=== PATIENT | male | born 2000 | race Caucasian/White ===

== ENCOUNTER 2021-03-12 00:30 | Day surgery (SDC) | payer BC, SELFPAY ==
[2021-03-03 15:24] VITALS: BMI 24.2
--- NOTE | 2021-03-03 15:33 | PC.NURSE ---
Report to the Outpatient Waiting Room, entrance under the green pavilion located off [facility], at time 1100 on date 03/12/21. OR Time: 1300. - You and your visitor will be asked a series of questions to screen for COVID 19 for your protection. - A mask is required within the hospital. - Only one visitor is allowed at this time. Patient visitors will be guided where to wait when not with patient. Preoperative COVID Testing Requirements: No COVID Test needed if: (proof is required; if not received patient will have Rapid Test prior to entry) - Patient has received COVID Vaccine at least 14 days prior to procedure date or - Patient has positive COVID test result within last 90 days of surgery date. COVID Test needed if above criteria is not met If not COVID vaccinated a COVID test must be conducted within 72 hours of surgery and patient is asked to isolate self from time of testing until procedure. You will go to the [facility] for your COVID testing. The [facility] is located at the corner of [address] [facility]. You will only be called if COVID results are positive and your surgeon may reschedule your elective surgery date. Patients may have clear liquids (water, carbonated beverages, clear teas, apple juice) until 3 hours prior to surgery with a maximum of 20 ounces. - No food from midnight until time of surgery - Infants may have breast milk until 4 hours before surgery, infant formula 6 hours prior to surgery. - Children will be allowed to drink immediately following surgery. If applicable, please bring a bottle or sippy cup to assist with drinking. Juice, water, soda, and popsicles are readily available. For infants on formula, please bring formula the day of surgery. Pacifiers are allowed. Take the following medications with a SIP of water the morning of surgery: N/A Medications to discontinue per physician: N/A Date to take last dose: N/A Please no make-up, nail ivorian, hairspray, perfume, deodorant, or body powder the day of surgery. No jewelry (including any body piercings) or valuables the day of surgery, leave them at home. Please take a shower or bath the night before, or the morning of, surgery with an antibacterial soap. Wear comfortable, loose fitting clothing. Children are encouraged to wear pajamas. - Jewelry must be removed prior to entering the operating room. Rings and piercings that are not removed may be cut off. - The hospital will not accept responsibility for valuables. - Please leave all valuables, including medications, at home the day of surgery. If you are going home after surgery, a licensed transit driver must drive you home. - NO public transportation without another adult. - We recommend that an adult stay with you for 24 hours following discharge. - We also recommend that you do not drive, make important decision, drink alcoholic beverages, or take any drugs that were not prescribed by your health care provider for at least 24 hours after your discharge time. For Pediatric surgeries, we recommend two adults accompany the child home (only one inside the building at this time). Follow any additional instructions given to you from your surgeon. Telephone instructions given to PT'S MOTHER - NORTH HINSONONEY and asked if any additional questions and then verbalized understanding. Patient advised to call surgeon office or pre surgery nurse liaison [phone] if any additional questions.
--- NOTE | 2021-03-04 10:54 | PM.HPGS ---
History of Present Illness History of Present Illness Consent: Risks, benefits, and alternatives have been discussed and questions answered. Patient agrees to proceed with procedure. Chief complaint: urethral stricture Narrative: Kavin Fish is a 20 year old male with a 2 year history of progressive obstructive and irritable voiding symptoms. Although residual volume is low by bladder scan, his symptoms are highly suggestive of outlet obstruction due to urethral stricture (based on patient age). Patient where the risk of this procedure including urinary tract infection, further urethral injury and recurrent urethral scarring. Review of Systems Cardiovascular: Cardiovascular: Denies chest pain, Denies lightheadedness, Denies palpitations and Denies dyspnea Respiratory: Respiratory: Denies dyspnea Gastrointestinal: Gastrointestinal: Denies diarrhea, Denies nausea and Denies vomiting Genitourinary: Genitourinary: Denies hematuria and Denies dysuria Endocrine: Endocrine: Denies palpitations [facility] Social History Social History Smoking status: Never smoker Alcohol intake: never Substance use: current Substance use type: marijuana Last use: 03/03/21 Living arrangements: with family Spiritual care concerns: No Meds Home Medications and Allergies Home Medications Medication Instructions Recorded Confirmed Type No Home Medications 03/03/21 03/03/21 History Allergies Allergy/AdvReac Type Severity Reaction Status Date / Time No Known Allergies Allergy Verified 03/03/21 15:21 Exam Const: General: no acute distress Resp: Effort & Inspection: normal respiratory effort GI: Inspection: non-distended GI Palp: No abdominal tenderness and No Guarding due to palpation present (GI) Auscultation: normal bowel sounds Assessment and Plan Assessment and plan (1) Urethral stricture: Code(s): N35.919 - Unspecified urethral stricture, male, unspecified site Status: Acute Assessment and Plan: Cystoscopy, urethral dilatation
[2021-03-12] VITALS (7 sets, daily range): BP systolic 114–127; BP diastolic 52–67; PULSE 53–66; RESP 14–20; TEMP 36.3–36.6; O2SAT 100; BMI 23.7
--- NOTE | 2021-03-12 06:49 | WPDHPUPDATE1 ---
History and Physical Update Update Date/Time: 03/12/21 06:49 History and Physical has been reviewed, including an updated exam of the patient. There are NO changes in the patient's condition. Risks, benefits, and alternatives have been discussed and questions answered. Patient agrees to proceed with procedure.
--- NOTE | 2021-03-12 08:45 | P.PNAN_ITS ---
Anes - Initial Pre Proc Eval Procedure: Operation Date: 03/12/21 13:00 Proposed Procedures p Flexible Cystoscopy, Urethral Dilatation - Saravanan Ngo MD Date/Time: 03/12/21 08:45 Surgeon: Saravanan Ngo MD Pre Op Diagnosis: urethral stricture Patient Data Age: 20 Gender: M Height: 1.68 m Weight: 68 kg Allergies Allergy/AdvReac Type Severity Reaction Status Date / Time No Known Allergies Allergy Verified 03/12/21 11:41 Home Medications Medication Instructions Recorded Confirmed Type No Home Medications 03/03/21 03/03/21 History Patient hx anesthesia problems: none Family hx anesthesia problems: none Results Review: All pre-operative results and documents have been reviewed as part of the pre-operative evaluation. [facility] Past Medical History Medical History (Updated 03/12/21 @ 08:45 by Tre Hernandez DO) Anxiety Crohn's disease Depression Social History Social History Smoking status: Never smoker Alcohol intake: never Substance use: current Substance use type: marijuana Last use: 03/03/21 Living arrangements: with family Spiritual care concerns: No Anes - Eval Final PreProcedure Day of Procedure 03/12/21 08:45 Patient weight: normal Heart: regular rate and rhythm Lungs: clear to auscultation and normal air movement Airway: Mallampati scale class II Neurological: alert and oriented Last oral intake: >/= 8 hours ASA classification: III Emergent: no Anesthetic plan: proceed Anesthesia type and monitoring: general GIVS and standard monitoring Results Review: All pre-operative results and documents have been reviewed as part of the pre-operative evaluation. Informed Consent: The patient's anesthetic plan and its attendant risks and benefits were discussed with the patient/family/POA. Questions were solicited and answers provided to the satisfaction of the patient/family/POA.
[2021-03-12] MEDS: LACTATED RINGERS 1,000 ML 30 ML IV CONT (12:08)
--- NOTE | 2021-03-12 12:12 | SUR.PREOP ---
PT AND MOTHER NOTIFIED SURGERY DELAYED APPROX 1 HOUR.
[2021-03-12] MEDS: ceFAZolin 2 GM/D5W 50 ML 2 GM/50 ML BAG IVPB (13:53)
[2021-03-12] MEDS: LIDOCAINE HCL 2% GEL UROJET 10 ML PKG MUCOUS MEM (14:10)
--- NOTE | 2021-03-12 14:54 | W.PM.PROC2 ---
Procedure Note - Detailed Date of Procedure 03/12/21 Pre-op Diagnosis Brulbous urethral stricture Post-op Diagnosis same Procedure Performed Cystoscopy, urethral dilatation Surgeon Saravanan Ngo MD Fur Mixer Operator None Anesthesia general Indications Incomplete bladder emptying Description of Procedure Patient is brought to the op suite was prepped draped in routine sterile fashion while in dorsal lithotomy position. Cystoscopy is undertaken the 16 F flexible cystoscope. He has a moderately constricting distal bulbous urethral stricture. The urethra was otherwise endoscopically normal. The bladder, likewise, was endoscopically normal no intravesical foreign body or neoplasm. There was no bladder trabeculation. He had a single orthotopic ureteral orifice with clear efflux. I dilated the bulbous urethral stricture from 16-26 F with Sheldon sounds. I emptied his bladder with a 16 F catheter. The patient tolerated the procedure well was taken recovery room good condition. Estimated Blood Loss 0 Drains No Packing No Pathology none sent Complications No immediate complications Condition stable Disposition PACU
== END 2021-03-12 16:03 | disposition home or self-care (01) ==
PROVIDERS: Visit Provider Urology
PROC: 0T7D8ZZ Dilation of Urethra, Via Natural or Artificial Opening Endoscopic (ICD-10-PCS; CPT 52281; principal; 2021-03-12 13:00)
DX: N35.912 Unspecified bulbous urethral stricture, male (principal)
CPT/HCPCS: 52281; A9270; J0690; J1100; J2250; J2405; J2704; J3010; J7120

== ENCOUNTER 2021-10-20 00:14 | Day surgery (SDC) | payer BC, SELFPAY ==
[2021-10-07 14:01] VITALS: BMI 24.2
[2021-10-20 07:07] VITALS: BP 131/64; PULSE 65; RESP 18; TEMP 36.3; O2SAT 100
[2021-10-20] MEDS: LACTATED RINGERS 1,000 ML 150 ML IV CONT (07:17)
--- NOTE | 2021-10-20 07:54 | WPDANESEPPF ---
Anes - Initial Pre Proc Eval Procedure: Operation Date: 10/20/21 08:15 Proposed Procedures p Esophagogastroduodenoscopy & Colonoscopy - Sandor Araujo MD Date/Time: 10/20/21 07:54 Surgeon: Sandor Araujo MD Pre Op Diagnosis: IBS, nausea Patient Data Age: 21 Gender: M Height: 1.63 m Weight: 61.2 kg Last Vital Signs Temp 97.4 F L 10/20/21 07:07 Pulse 65 10/20/21 07:07 Resp 18 10/20/21 07:07 BP 131/64 10/20/21 07:07 Pulse Ox 100 10/20/21 07:07 O2 Del Method Room Air 10/20/21 07:07 Allergies Allergy/AdvReac Type Severity Reaction Status Date / Time No Known Allergies Allergy Verified 10/20/21 07:04 Home Medications Medication Instructions Recorded Confirmed Type dicyclomine 10 mg capsule 10 mg PO TID PRN cramping #90 caps 08/13/21 10/07/21 Rx sodium sul 1.479 gram-potas ch See Rx Instructions PO PER PKG DIR 08/18/21 10/07/21 Rx 0.188 gram-magnes sul 0.225 gram #24 tabs tablet (Sutab) sodium sul 1.479 gram-potas ch See Rx Instructions PO PER PKG DIR 09/23/21 10/07/21 Rx 0.188 gram-magnes sul 0.225 gram #24 tabs tablet (Sutab) omeprazole 40 mg capsule,delayed 40 mg PO DAILY 10/20/21 10/20/21 History release Patient hx anesthesia problems: none Family hx anesthesia problems: none Results Review: All pre-operative results and documents have been reviewed as part of the pre-operative evaluation. [facility] Past Medical History Medical History (Updated 08/13/21 @ 16:06 by Sandor Araujo MD) Abdominal pain Anxiety Crohn's disease Depression Irritable bowel syndrome with alternating bowel habits Nausea Social History Social History Smoking status: Never smoker Alcohol intake: never Substance use: current Substance use type: marijuana Last use: 03/03/21 Living arrangements: with family Spiritual care concerns: No Anes - Eval Final PreProcedure Day of Procedure 10/20/21 07:54 Patient weight: normal Heart: regular rate and rhythm Lungs: clear to auscultation Airway: Mallampati scale class II Neurological: alert and oriented Last oral intake: >/= 8 hours ASA classification: II Emergent: no Anesthetic plan: proceed Anesthesia type and monitoring: general GIVS and standard monitoring Results Review: All pre-operative results and documents have been reviewed as part of the pre-operative evaluation. Informed Consent: The patient's anesthetic plan and its attendant risks and benefits were discussed with the patient/family/POA. Questions were solicited and answers provided to the satisfaction of the patient/family/POA.
--- NOTE | 2021-10-20 08:02 | PM.HPGS ---
History of Present Illness History of Present Illness Consent: Risks, benefits, and alternatives have been discussed and questions answered. Patient agrees to proceed with procedure. Chief complaint: IBS, nausea Narrative: Kavin Fish is a 21 year old male here for egd and colonoscopy, he has recurrent abdominal pain, in 2018 had egd and colonoscopy (egd with bx normal), cecal bx showed mild colitis suggestive possible Crohn's, ileum and other part of colon bx normal. MRE showed possible Crohn's (hyperenhacement in cecum/ileum but no thickening of wall). Then he saw another GI doctor and had colonoscopy in 2019, this time no signs of Crohn's. Patient has been treated in past with viberzi and xifaxan but did not make a difference. Again with abdominal pain and also nausea (he used to get medical marijuana and now smoking daily), lately also with constipation Review of Systems Constitutional: Constitutional: Denies headache(s) and Denies weakness Eyes: Eyes: Denies blurry vision ENT: Reports Normal hearing present, Denies headache(s) and Denies neck pain Cardiovascular: Cardiovascular: Denies chest pain and Denies dyspnea Respiratory: Respiratory: Denies dyspnea Gastrointestinal: Gastrointestinal: Reports no additional gastrointestinal complaints Genitourinary: Genitourinary: Denies dysuria Musculoskeletal: Musculoskeletal: Denies neck pain Integumentary/Breasts: Skin/Breast: Denies dry skin Neurologic: Reports Normal hearing present, Denies headache(s) and Denies weakness Psychiatric: Psychiatric: Denies anxiety Endocrine: Endocrine: Denies change in body appearance Hematologic/Lymphatic: Hematologic/Lymphatic: Denies easy bleeding Allergic/Immunologic: Allergic/Immunologic: Denies urticaria PMF[facility] Past Medical History Medical History (Updated 08/13/21 @ 16:06 by Sandor Araujo MD) Abdominal pain Anxiety Crohn's disease Depression Irritable bowel syndrome with alternating bowel habits Nausea Social History Social History Smoking status: Never smoker Alcohol intake: never Substance use: current Substance use type: marijuana Last use: 03/03/21 Living arrangements: with family Spiritual care concerns: No Meds Home Medications and Allergies Home Medications Medication Instructions Recorded Confirmed Type dicyclomine 10 mg capsule 10 mg PO TID PRN cramping #90 caps 08/13/21 10/07/21 Rx sodium sul 1.479 gram-potas ch See Rx Instructions PO PER PKG DIR 08/18/21 10/07/21 Rx 0.188 gram-magnes sul 0.225 gram #24 tabs tablet (Sutab) sodium sul 1.479 gram-potas ch See Rx Instructions PO PER PKG DIR 09/23/21 10/07/21 Rx 0.188 gram-magnes sul 0.225 gram #24 tabs tablet (Sutab) omeprazole 40 mg capsule,delayed 40 mg PO DAILY 10/20/21 10/20/21 History release Allergies Allergy/AdvReac Type Severity Reaction Status Date / Time No Known Allergies Allergy Verified 10/20/21 07:04 Vital Signs Vital Signs - 24 hr 10/20/21 07:07 Temperature 97.4 F L Pulse Rate 65 Respiratory Rate 18 Blood Pressure 131/64 Pulse Oximetry 100 Oxygen Delivery Room Air Exam Const: General: comfortable and no acute distress HENMT: General nose exam: Normal nares present Eyes: General: appearance normal, both eyes and all related structures Neck: Neck: no JVD Resp: Auscultation: clear to auscultation bilaterally Cardio: Rate: regular rate Rhythm: regular rhythm GI: Inspection: non-distended GI Palp: Yes Soft to palpation Skin: General skin exam: normal color Neuro: General: gait normal Speech: normal speech Extrem: General: normal to inspection Psych: Mental Status: mental status grossly normal Assessment and Plan Assessment and plan (1) Abdominal pain: Code(s): R10.9 - Unspecified abdominal pain Status: Acute Assessment and Plan: egd and colonoscopy with bx
[2021-10-20 08:31] VITALS: BP 110/70; PULSE 68; RESP 24; O2SAT 100
[2021-10-20 08:41] VITALS: BP 108/55; PULSE 82; RESP 14; O2SAT 100
[2021-10-20 08:51] VITALS: BP 128/88; PULSE 80; RESP 16; O2SAT 100
--- NOTE | 2021-10-20 10:53 | SUR.OPER ---
EGD: Start 08:13 End 08:16 Colon: Start 08:21 End 08:30
== END 2021-10-20 09:03 | disposition home or self-care (01) ==
PROVIDERS: Visit Provider Internal Medicine Gastroenterology
PROC: 0DJ08ZZ Inspection of Upper Intestinal Tract, Via Natural or Artificial Opening Endoscopic (ICD-10-PCS; CPT 43235; principal; 2021-10-20 08:15)
DX: R10.9 Unspecified abdominal pain (principal); K50.90 Crohn's disease, unspecified, without complications; K29.70 Gastritis, unspecified, without bleeding; R11.0 Nausea; F41.9 Anxiety disorder, unspecified; F12.90 Cannabis use, unspecified, uncomplicated; F32.A Depression, unspecified
CPT/HCPCS: 45380; 43239; 88305; J2001; J2704; J7120

== ENCOUNTER 2022-07-15 08:20 | Emergency (ER) | payer BC, SELFPAY ==
[2022-07-15] VITALS (7 sets, daily range): BP systolic 108–140; BP diastolic 60–92; PULSE 73–92; RESP 16–18; TEMP 37.2; O2SAT 97–100
--- NOTE | ~2022-07-15 | CT_ITS ---
CT of the Abdomen and Pelvis: Indication: Abdominal pain Technique: 2.5 mm axial scans were obtained through the abdomen and pelvis following intravenous adm inistration of 100 cc of Omnipaque 350. Dose reduction technique was used on this scan by utilizing a utomated exposure control and iterative reconstruction technique. The dose-length product (DLP) was 2 26.48 mGy-cm. Findings: Scans through the lung bases are unremarkable. The liver, spleen, pancreas, gallbladder, adrenals and kidneys are within normal limits. No evidence of aortic aneurysm. No lymphadenopathy. No bowel obstruction or bowel wall thickening. Multiple fluid-filled bowel loops noted. There is no e vidence to suggest acute appendicitis. Images through the pelvis were performed. Urinary bladder unremarkable. Prostate gland and seminal ve sicles are unremarkable. Impression: . Fluid-filled bowel loops. Consider nonspecific gastroenteritis. Reviewed, dictated and finalized at [facility]. Impression: . Fluid-filled bowel loops. Consider nonspecific gastroenteritis.
[2022-07-15 09:01] LABS: Basophils Percent Auto 0.2 % (0.2-1.2); Eosinophils Percent Auto 0.2 % (0-4.4); Hematocrit 48.8 % (42.0-52.0); Immature Granulocyte Absolute 0.05 K/mm3 (0.00-0.031); Immature Granulocyte Percent A 0.3 % (0-0.5); Lymphocytes Absolute Auto 0.26 K/mm3 (0.9-3.2); Lymphocytes Percent Auto 1.7 % (18.3-44.2); Mean Corpuscular HGB Conc 34.8 g/dl (32-36); Mean Corpuscular Hemoglobin 29.7 pg (26-34); Mean Corpuscular Volume 85.3 fl (80-100); Monocytes Absolute Auto 0.5 K/mm3 (0.1-0.6); Monocytes Percent Auto 3.2 % (2.6-8.5); Neutrophils Absolute Auto 14.3 K/mm3 (1.3-6.7); Neutrophils Percent Auto 94.4 % (45.5-73.1); Platelet Count Result 296 k/mm3 (150-375); Red Blood Count 5.72 M/mm3 (4.6-6.20); Red Cell Distribution Width 12.9 % (11.5-14.5); White Blood Count 15.1 K/mm3 (4.5-10.0)
[2022-07-15 09:12] LABS: Alanine Aminotransferase 37 U/L (6-50); Albumin Level 5.6 g/dL (3.5-5.1); Alkaline Phosphatase 98 U/L (38-126); Anion Gap 13 mmol/L (8-16); Aspartate Amino Transferase 33 U/L (17-59); Bilirubin,Total 1.2 mg/dL (0.2-1.3); Blood Urea Nitrogen 20 mg/dL (9-20); Calcium 10.4 mg/dL (8.4-10.2); Carbon Dioxide 27 mmol/L (22-30); Chloride 102 mmol/L (98-107); Estimated Glomerular Filt Rate > 60; Glucose 110 mg/dL (65-110); Lipase 63 U/L (23-300); Potassium 4.1 mmol/L (3.4-5.0); Sodium 142 mmol/L (137-145)
[2022-07-15 09:15] LABS: Appearance Urine Cloudy (Clear); Bacteria Urine None Seen /hpf; Bilirubin Urine 1+ (Negative); Blood Urine Negative (Negative); Color Urine Dark Yellow (Yellow); Glucose Urine UA Negative (Negative); Ketones Urine 1+ mg/dL (Negative); Leukocyte Esterase Ur Negative LEU/UL (Negative); Mucus Urine Present /lpf; Nitrate Urine Negative (Negative); Protein Urine 1+ mg/dL (Negative); RBC Urine 0-2 /hpf (0-2); Squamous Epithelial Cell Urine None seen /hpf (Few); WBC Urine 0-5 /hpf; pH Urine 5.5 (5.0-9.0)
[2022-07-15 09:16] LABS: Add Urine Microscopic? YES
--- NOTE | 2022-07-15 09:30 | ED.NAVMDI ---
HPI - Nausea/Vomiting/Diarrhea General Chief complaint: Nausea/Vomiting/Diarrhea Stated complaint: N/V/D Time Seen by Provider: 07/15/22 08:53 History of Present Illness HPI Narrative: Patient is a 30-year-old male with a history of Crohn's disease here due to concerns over nausea, vomiting and diarrhea over the past 4 days. Patient states he is not able to tolerate any p.o. He also reports a severe, diffuse abdominal cramping that is more severe than his usual flareups from Crohn's disease. Patient states he has been to the area from [place] and has not yet established with a GI doctor. He does smoke marijuana. He has had no fevers, chills, bloody bowel movements, blood in his vomit, sick contacts or new or suspicious foods. He does not take any medicine for his Crohn's disease but is seeking to start [employer] in the future. Took a leftover cipro at home without relief. Per chart review patient had a colonoscopy in October 2021 that showed no evidence of Crohn's disease. Related Data Home Medications Medication Instructions Recorded Confirmed omeprazole 40 mg capsule,delayed 40 mg PO DAILY 10/20/21 10/20/21 release Allergies Allergy/AdvReac Type Severity Reaction Status Date / Time No Known Allergies Allergy Verified 07/15/22 08:30 Review of Systems Review of Systems: Gen.: Denies fevers or chills Eyes: Denies eye pain or visual change ENT: Denies congestion Respiratory: Denies shortness of breath or cough CV: Denies chest pain or palpitations GI: Reports abdominal pain, nausea, vomiting and diarrhea denies burning, urgency, frequency or hematuria Musculoskeletal: Denies back pain or muscle pain Neuro: Denies numbness, tingling, weakness or focal weakness Skin: Denies rash Except as documented, all other systems reviewed and negative [facility] Past Medical History Medical History Abdominal pain Anxiety Crohn's disease Depression Irritable bowel syndrome with alternating bowel habits Nausea Social History Social History Smoking status: Never smoker Alcohol intake: never Substance use: current Substance use type: marijuana Last use: 03/03/21 Living arrangements: with family Spiritual care concerns: No Exam Narrative: APPEARANCE: Well appearing, no pain in distress, well-nourished. Head: Normocephalic and atraumatic. EYES: PERRLA/EOMI, conjunctivae clear NOSE: No nasal drainage EARS: External ear normal in appearance THROAT: Oropharynx is clear. Mucous membranes are moist. NECK: Supple. No adenopathy, no masses. RESPIRATORY: Airway patent, respirations nonlabored. Clear to auscultation bilaterally, no rales, rhonchi, wheezing. CARDIOVASCULAR: Regular rate and rhythm without murmurs, rubs, or gallops. ABDOMINAL: Diffuse abdominal tenderness. Normoactive bowel sounds. No rebound tenderness or guarding. MUSCULOSKELETAL: Extremities are warm and well-perfused. Moves all extremities well. No edema. NEURO: Normal speech. No focal neurologic deficits. SKIN: Skin is warm and dry. No rashes. PSYCHIATRIC: Normal affect/mood.. Course Vital Signs Vital signs: Vital Signs Temperature 98.9 F 07/15/22 08:23 Pulse Rate 86 07/15/22 08:23 Respiratory Rate 18 07/15/22 08:23 Blood Pressure 140/92 H 07/15/22 08:23 Pulse Oximetry 100 07/15/22 08:23 Oxygen Delivery Room Air 07/15/22 08:23 Temperature 98.9 F 07/15/22 08:23 Pulse Rate 76 07/15/22 13:00 Respiratory Rate 16 07/15/22 13:00 Blood Pressure 110/66 07/15/22 13:00 Pulse Oximetry 98 07/15/22 13:00 Oxygen Delivery Room Air 07/15/22 08:23 MDM - Nausea/Vomiting/Diarrhea MDM Narrative Medical decision making narrative: 22-year-old male here for evaluation of nausea, vomiting and diarrhea for the past day and a half, unable to tolerate any p.o. Patient does have history of Crohn
[2022-07-15] MEDS: ONDANSETRON INJ 4 MG/2 ML VIAL IV PUSH (09:49)
[2022-07-15] MEDS: MORPHINE SULFATE (*CRX) 4 MG/ML INJ IV PUSH (10:02)
[2022-07-15] MEDS: LACTATED RINGERS 1,000 ML 999 ML IV CONT ×2 (10:03→11:10)
[2022-07-15] MEDS: FAMOTIDINE 20 MG/2 ML VIAL IV PUSH (10:03)
[2022-07-15] MEDS: diphenhydrAMINE HCl INJ 50 MG/ML VIAL 25 MG IV PUSH ×2 (11:10→11:40)
[2022-07-15] MEDS: METOCLOPRAMIDE HCL INJ 10 MG/2 ML VIAL IV PUSH (11:10)
== END 2022-07-15 13:10 | disposition home or self-care (01) ==
PROVIDERS: Emergency Medicine; Emergency Provider Physician Assistant
DX: K52.9 Noninfective gastroenteritis and colitis, unspecified (principal); K50.90 Crohn's disease, unspecified, without complications
CPT/HCPCS: 36415; 74177; 80053; 81001; 83690; 85025; 96361; 96374; 96375; 96376; 99284; J1200; J2270; J2405; J2765; J7120; Q9967

== ENCOUNTER 2022-08-23 08:21 | Outpatient (CLI) | payer BC, SELFPAY ==
--- NOTE | ~2022-08-23 | XR_ITS ---
EXAMINATION: XR small bowel follow through DATE: 08/23/2022 09:28 INDICATION: Abdominal pain. Bloating. TECHNIQUE: Oral contrast was administered, and a time course of radiographs of the abdomen was obtain ed. Fluoroscopy of the small bowel was performed. Fluoroscopy exposure time was 0.0 minutes. The tota l number of images was 6. COMPARISON: CT abdomen and pelvis 07/15/2022 FINDINGS: There are no dilated loops of bowel. There is no abnormal mass or stricture. The terminal ileum is no rmal. Transit time from the stomach to proximal colon was approximately 30 minutes. IMPRESSION: 1. Normal small bowel series. Reviewed, dictated and finalized at location A.
== END 2022-08-23 08:22 | disposition home or self-care (01) ==
PROVIDERS: Visit Provider Nurse Practitioner
DX: K21.9 Gastro-esophageal reflux disease without esophagitis (principal); K58.0 Irritable bowel syndrome with diarrhea; M62.89 Other specified disorders of muscle; R14.0 Abdominal distension (gaseous); R19.8 Other specified symptoms and signs involving the digestive system and abdomen; Z87.19 Personal history of other diseases of the digestive system
CPT/HCPCS: 74250

== ENCOUNTER 2024-06-22 16:41 | Emergency (ER) | payer BC, SELFPAY ==
[2024-06-22 16:48] VITALS: BP 114/63; PULSE 76; RESP 18; TEMP 36.3; O2SAT 100
[2024-06-22 17:37] LABS: EDUAAPPEAR Cloudy; EDUABILI Negative (Negative); EDUABLOOD Negative (Negative); EDUACOLOR1 Yellow; EDUAGLUCOSE Negative (Negative); EDUAKETONE Negative (Negative); EDUALEUKO Trace (Negative); EDUANITRATE Negative (Negative); EDUAPROTEIN 1+ (Negative); EDUASPGRAVITY 1.025; EDUAUROBILI 0.2
[2024-06-22] MEDS: cefTRIAXone 500 MG, LIDOCAINE 1% LOCAL INJ 1 ML IM (17:41)
--- NOTE | 2024-06-22 18:02 | ED.MALEGU ---
HPI - Male Genitourinary General Chief complaint: Urogenital-Male Stated complaint: Uti Symptoms Time Seen by Provider: 06/22/24 17:18 Source: patient, family (Mother) and RN notes reviewed Mode of arrival: ambulatory Limitations: no limitations History of Present Illness HPI Narrative: Patient presents today with a 1 month history urethral itching and mild dysuria. He denies penile discharge, hematuria, testicular pain or swelling. He does have intermittent unprotected intercourse with 1 sexual partner. He would like to be tested for STIs. He has talked to his partner and states she has no symptoms. Related Data Home Medications ?Medication ?Instructions ?Recorded ?Confirmed ?Last Taken ?Type multivitamin 1 tablet PO DAILY 03/19/24 03/19/24 Unknown History Allergies Allergy/AdvReac Type Severity Reaction Status Date / Time No Known Allergies Allergy Verified 06/22/24 17:05 Review of Systems Review of Systems: CONSTITUTIONAL: Denies body aches, fever, chills, or sweats. EYES: Denies visual changes, redness, or discharge. ENT: Denies rhinorrhea, congestion, sore throat, or otalgia. CARDIOVASCULAR: Denies chest pain, palpitations, or edema. RESPIRATORY: Denies cough or dyspnea. GASTROINTESTINAL: Denies abdominal pain, nausea, vomiting, or diarrhea. GENITOURINARY: + dysuria, urethral itching SKIN: Denies rash, itching, or wounds. MUSCULOSKELETAL: Denies back pain, joint pain, or myalgia. NEUROLOGIC: Denies headache, numbness, tingling, or weakness. PSYCH: Denies depression or anxiety. 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 Abdominal pain Nausea Depression Anxiety Crohn's disease Family History Family History Father Hypertension Depression Mother Depression Grandparent Thyroid disease Social History Social History Smoking status: Never smoker Tobacco type: e-cigarettes/vaping Alcohol intake: current Alcohol use details: whiskey- every 2 weeks Substance use: current Substance use type: marijuana Last use: 03/03/21 Living arrangements: with family Spiritual care concerns: No Comments At time of signature, I have reviewed and agree with nursing past medical, surgical, social and family history unless otherwise noted. Please see nursing chart for further information. There is no relevant family history pertinent to the presenting complaint Exam Narrative: GENERAL: Well-appearing, well-nourished, and in no acute distress. HEAD: Normocephalic, atraumatic. EYES: EOMI. No redness or drainage. Conjunctivae normal. ENT: Mucous membranes pink and moist. NECK: Normal AROM. CHEST: No respiratory distress. : deferred EXTREMITIES: Normal range of motion. No edema. SKIN: Warm, dry, no rash. Capillary refill normal. Normal skin turgor. NEURO: No focal deficits. Alert and oriented x3. Gait steady. PSYCH: Normal affect. No signs of depression or anxiety. Course Course Level of Care: Express Care Visit Vital Signs Vital signs: Vital Signs Temperature 97.3 F L 06/22/24 16:48 Pulse Rate 76 06/22/24 16:48 Respiratory Rate 18 06/22/24 16:48 Blood Pressure 114/63 06/22/24 16:48 Pulse Oximetry 100 06/22/24 16:48 Temperature 97.3 F L 06/22/24 16:48 Pulse Rate 76 06/22/24 16:48 Respiratory Rate 18 06/22/24 16:48 Blood Pressure 114/63 06/22/24 16:48 Pulse Oximetry 100 06/22/24 16:48 Reviewed MDM - Male Genitourinary MDM Narrative Medical decision making narrative: Urinalysis is not consistent with UTI. Culture pending. Urine test pending for gonorrhea, chlamydia, Trichomonas. Prophylactic antibiotics given. Anticipatory guidance given. Differential Diagnosis Differential diagnosis: Likely urinary tract infection, urethritis and other (Gonorrhea, chlamydia, Trichomonas) Lab Data Attestation: I reviewed the patient's lab results. Labs: Lab Results 06/22/24 Range/Units 17:34 POC Urine Color Yellow POC Urine Clarity Cloudy POC Urine pH 6.0 POC Ur Specif [place] 1.025 POC Urine Protein 1+ (Negative) POC Ur Glucose (UA) Negative (Negative) POC Urine Ketones Negative (Negative) POC Urine Blood Negative (Negative) POC Urine Nitrite Negative (Negative) POC Urine Bilirubin Negative (Negative) POC Urine Urobilinogen 0.2 POC U Leukocyte Esteras Trace (Negative) Critical Care Time Critical Care Time Critical Care Time: No Discharge Plan Discharge Clinical Impression: Dysuria Patient Disposition: Home, Self-Care Condition: Stable Instructions: Chlamydia (ED), Gonorrhea (ED), Trichomoniasis (ED) Additional Instructions: Your urinalysis sample at [facility] today was negative for a infection. Your urine sample has been sent off to test for gonorrhea, chlamydia, and trichomonas infections. These tests will typically be back within 24 hours. You will be notified by telephone if any of your tests come back positive. You have been treated with Rocephin in urgent care today to cover you for gonorrhea. Prescriptions for Flagyl and doxycycline have been sent to your pharmacy to cover you for trichomonas and chlamydia. You may weight until tomorrow to start these medications if your tests are positive. If any of your test come back positive, you will need to notify any partners that you have, and they will need to be tested and treated. If your tests come back negative and you are still experiencing symptoms, please follow-up with your PCP or urologist for further evaluation and treatment. If your symptoms worsen to include fever, abdominal pain, or back pain, please go to the hospital immediately. Patient Language: Bulgarian Prescriptions: New doxycycline hyclate 100 mg tablet 100 mg PO BID 7 Days Qty: 14 0RF metronidazole 500 mg tablet 2,000 mg PO ONCE Qty: 4 0RF No Action omeprazole 40 mg capsule,delayed release(DR/EC) 40 mg PO BID Qty: 60 1RF duloxetine 60 mg capsule,delayed release(DR/EC) 60 mg PO DAILY Qty: 30 11RF hyoscyamine sulfate [Levsin] 0.125 mg tablet 0.125 mg PO QID PRN (Reason: abdominal pain) Qty: 120 2RF ondansetron HCl 8 mg tablet 8 mg PO Q8H PRN (Reason: nausea and vomiting) Qty: 90 2RF minoxidil 5 % foam 1 ea topical BID Qty: 60 5RF multivitamin Tablet 1 tablet PO DAILY cholecalciferol (vitamin D3) 1,250 mcg (50,000 unit) tablet 1,250 mcg PO WEEKLY Qty: 4 11RF Follow-up/Referrals: PHYSICIAN,TECHNOLOGY SALES REPRESENTATIVE [Primary Care Provider] - Time of Disposition: 17:49
[2024-06-23 19:22] LABS: Trichomonas Vag PCR NOT DETECTED (NOT DETECTE)
[2024-06-23 19:30] LABS: Chlamydia trachomatis DETECTED (NOT DETECTE); Neisseria gonorrhoeae PCR NOT DETECTED (NOT DETECTE)
== END 2024-06-22 18:02 | disposition home or self-care (01) ==
PROVIDERS: Emergency Provider Nurse Practitioner
DX: R30.0 Dysuria (principal); A74.9 Chlamydial infection, unspecified; K50.90 Crohn's disease, unspecified, without complications; K21.9 Gastro-esophageal reflux disease without esophagitis
CPT/HCPCS: 81003; 87086; 87491; 87591; 87661; 96372; 99213; G0463; J0696; J2003